=== PATIENT | male | born 1990 | race African-American/Black ===

== ENCOUNTER 2017-03-22 16:55 | Emergency (ER) | payer OTHER ==
[~2017-03-22 16:55] MED LIST: BACTRIM DS TABL1 TA2 PO; BACTROBAN22 GM EXT; HERPES MED; IMODIUM2 MG PO; PHENERGAN25 MG PO; RANITIDINE HCL150 M1 PO; ZANTAC150 MG PO
== END 2017-03-22 18:43 | disposition home or self-care (01) ==
LOC: SED 16:55
DX: R07.89 Other chest pain (principal); K21.9 Gastro-esophageal reflux disease without esophagitis
CPT/HCPCS: 99283

== ENCOUNTER 2017-05-04 14:57 | Emergency (ER) | payer OTHER ==
[~2017-05-04] VITALS: Ht 185.4 cm; Wt 145.1 kg
== END 2017-05-04 17:48 | disposition home or self-care (01) ==
LOC: CFTX 14:57 → CED 14:57 → CFTX 15:35
DX: S16.1XXA Strain of muscle, fascia and tendon at neck level, initial encounter (principal); K21.9 Gastro-esophageal reflux disease without esophagitis; F17.210 Nicotine dependence, cigarettes, uncomplicated; V49.40XA Driver injured in collision with unspecified motor vehicles in traffic accident, initial encounter
CPT/HCPCS: 99283

== ENCOUNTER 2017-05-15 20:35 | Emergency (ER) | payer OTHER ==
[~2017-05-15] VITALS: Ht 182.9 cm; Wt 145.1 kg
[2017-05-15] MEDS ORDERED: NO MEDICATIONS (20:52)
== END 2017-05-15 21:28 | disposition home or self-care (01) ==
LOC: SED 20:35
DX: T63.441A Toxic effect of venom of bees, accidental (unintentional), initial encounter (principal)
CPT/HCPCS: 99282